=== PATIENT | female | born 1990 ===

== ENCOUNTER 2017-05-30 20:17 | Emergency (ER) | payer SELFPAY ==
[~2017-05-30] VITALS: Ht 157.5 cm; Wt 70.1 kg
[2017-05-30 20:24] VITALS: Ht 157.5 cm; Wt 70.1 kg
== END 2017-05-31 01:45 | disposition left against medical advice (07) ==
LOC: FTE 20:17
DX: Z53.21 Procedure and treatment not carried out due to patient leaving prior to being seen by health care provider (principal)